=== PATIENT | male | born 1990 | race Hispanic/Latino ===

== ENCOUNTER 2024-12-30 11:05 | Outpatient (CLI) | payer BC, SELFPAY ==
--- NOTE | ~2024-12-30 | CT_ITS ---
CT Scan of the Chest without Contrast: Clinical Indication: Immunodeficiency Technique: Contiguous sections were acquired throughout the chest without intravenous contrast. Dose reduction technique was used on this scan by utilizing automated exposure control and iterative recon struction technique. The dose-length product (DLP) was 141.08 mGy-cm. Findings: There is no evidence of any significant mediastinal, hilar or axillary lymphadenopathy. The mediastin al soft tissues appear normal. There is no evidence of pleural or pericardial effusion. The lungs are clear. No pulmonary nodules or infiltrates are noted. Images through the upper abdomen reveal partially imaged splenomegaly. Impression: No significant abnormalities seen in the chest. Partially imaged splenomegaly. Reviewed, dictated and finalized at location . Impression: No significant abnormalities seen in the chest. Partially imaged splenomegaly.
--- OUTSIDE RECORDS SUMMARY | 2024-12-30 12:01 | XMS_ITS | Clinical Summary ---
Author Organization [facility] Address [address] [place] [address] Care Team Providers Care Spiral Tube Winder Helper Name Role Phone Lyubov Cuenca MD Primary Care Provider [phone] Source Comments [facility],non-owned Affiliates and Associated Physician Practices is amultiple site organization consisting of ambulatory clinics and hospital sitesin [place], [place], [place] and [place]. This disclosure is being madepursuant to the Care Everywhere program and may not contain all information available regarding this patient. Last updated 18.[facility] Allergies Active Allergy Reactions Criticality Noted Date Comments Amlodipine Besylate 11/01/2013 [place] bad when taking Amlodipine Lisinopril 11/01/2013 Elevated creatinine Penicillins Rash Low 01/16/2010 Medications * Be aware that medications may not be up to date on this document. Alwaysverify current medications with the patient. Medication Sig Dispensed Refills Start Date End Date Status Loperamide HCl (IMODIUM A-D) 2 MG TABS Take 4 mg by mouth 3 times daily. 90 Tab 3 05/21/2012 Active acetaminophen (TYLENOL) 325 MG tablet Take 2 Tabs by mouth every 6 hours as needed. Maximum allowable Acetaminophen amount = 4 Grams (4000 mg) / 24 hours. 04/23/2013 Active predniSONE (DELTASONE) 20 MG tabletIndications:G LILD, GENERAL MACHINIST sarcoidosis Take 2 Tabs by mouth once daily. Indications: GLILD, GENERAL MACHINIST sarcoidosis 60 Tab 5 06/01/2013 Active chlorthalidone (HYGROTON) 50 MG tablet Take 1 Tab by mouth once daily. 30 Tab 4 06/25/2013 Active azaTHIOprine (IMURAN) 50 MG tabletIndications:G LILD Take 2 Tabs by mouth once daily. Indications: GLILD 60 Tab 11 07/30/2013 Active sulfamethoxazole-tr imethoprim (BACTRIM DS; SEPTRA DS) 800-160 MG tabletIndications:C VID Take 1 Tab by mouth once daily. 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 He has systolic hypertension into the high 180's during IVIG and elevated on baseline. Likely steroids contributing to his hypertension. No renal artery stenosis on resent renal ultrasound. Plan: 1. Admit to Nephrology for observation 2. Low sodium diet 3. Vitals q 8 4. Isradipine 5 mg q 6 hours for systolic BP > 150 5. CBC, CMP, ESR, UA today 6. Will likely need daily blood pressure medication Assessment & Plan (05/04/2013 7:21 PM CDT): Assessment: Joao is a 22 y.o. 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 He has systolic hypertension into the high 180's during IVIG and elevated on baseline. Likely steroids contributing to his hypertension. No renal artery stenosis on resent renal ultrasound. Plan: 1. Admit to Nephrology for observation 2. Low sodium diet 3. Vitals q 8 4. Isradipine 5 mg q 6 hours for systolic BP > 150 5. 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 Plan: Multiple BAL and CSF panels and cultures pending Resp: -stable on room air -CT guided needle biopsy has been canceled for today. It is suppose to be scheduled for tomorrow. 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 Plan: Resp: -stable on room air -Bronchoscopy this afternoon with BAL -Plan for IR to perform a fine needle biopsy ID -Multiple panels, cultures ordered including --BAL: bacterial culture and gram stain, viral culture, fungal culture, mycoplasma pcr, calcoflour stain, PJP stain, AFB stain, PCR for EBV CMV HSV Adeno and HHV6 -LP this afternoon including cultures from CSF A/I -Received IVIG lastnight GI -NPO with MIVF running until after procedure Neuro -Continues to have 6th cranial nerve palsy on the right with slight improvement Assessment & Plan (04/09/2013 11:15 AM CDT): Assessment: 22 yo with right cranial nerve palsy of unknown etiology and noted elevated ESR. DDX includes viral infection (varicella, hema, cmv), malignancy (leukemia), other infectious etiology (fungal, lyme) and sarcoidosis. Lab results still in process Plan: 1. Allergy immunology following 2. Infectious disease onsult for their recommendations on starting empiric acyclovir for this questionable varicella infection 3. Await lab results. If no acyclovir patient should be able to be discharged home to await lab results 4. Vitals q 8 5. Regular diet Assessment & Plan (04/09/2013 11:11 AM CDT): Assessment: 22 yo with right cranial nerve palsy of unknown etiology and noted elevated ESR. DDX includes viral infection (varicella, hema, cmv), malignancy (leukemia), other infectious etiology (fungal, lyme) and sarcoidosis. Lab results still in process Plan: 1. Allergy immunology following 2. Infectious disease onsult for their recommendations on starting empiric acyclovir for this questionable varicella infection 3. Await lab results. If no acyclovir patient should be able to be discharged home to await lab results 4. Vitals q 8 5. Regular diet Assessment & Plan (04/08/2013 1:43 PM CDT): Assessment: 22 yo with right cranial nerve palsy of unknown etiology. With noted retinal inflammation and atypical cells noted in vitreous questionable infectious etiology (varicella) in the presence of his immunodeficiency. MRI abnormality with enhancement ddx includes leukemia/lymphorma or infection with given findings Plan: Assessment & Plan (04/08/2013 1:58 PM CDT): Assessment: 22 yo with right cranial nerve palsy of unknown etiology. With noted retinal inflammation and atypical cells noted in vitreous questionable infectious etiology (varicella) in the presence of his immunodeficiency. With given MRI findings Questionable for leukemia/lymphoma Plan: 1. Lumbar puncture today ( Culture, gram stain, Protein, glucose, lyme disease, Varicella, CMV, EBV, Cytology, HSV, Fungal culture, SAUL, AFB of the CSF) 2. Allergy/Immunology consult appreciated and will obtain blood ( RA, Varicella PCR, CRP, CMP, Immunoglobulins, CBC, Immunodef panel, Lymphocyte proliferation) 3. Vitals q 8 4. 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 CBC normal on admission. Hemolytic anemia may be the cause of this. Retic count normal. PT, INR, PTT normal CVID (common variable immunodeficiency) 04/27/20 10 Overview (04/03/2012): IgG 381, IgA 9, IgM 65 - 1664 S pneumoniae decreased Anti-T <0.01, anti-D 0.04, anti-HiB 0.18 CD27+ 0%, IgD- 0% Gamunex 10% 30 grams, 603 mg/kg/month. Changed to Gammaplex 5% 30 grams 519 mg/kg/month for insurance reasons on 04/03/12. Assessment & Plan (04/09/2013 11:15 AM CDT): Assessment: 22 yo with CVID followed by our allergy/immunology and receiving IVIG every month. Unknown if current 6th cranial nerve palsy secondary to an infectious etiology Plan: 1. Consult Allergy/Immunology Assessment & Plan (04/07/2013 3:34 PM CDT): Assessment: 22 yo with CVID followed by our allergy/immunology and receiving IVIG every month. Unknown if current 6th cranial nerve palsy secondary to an infectious etiology Plan: 1. Consult Allergy/Immunology Assessment & Plan (04/07/2013 3:22 PM CDT): Assessment: 22 yo with CVID followed by our allergy/immunology and receiving IVIG every month. Unknown if current 6th cranial nerve palsy secondary to an infectious etiology Plan: 1. Consult Allergy/Immunology Resolved Problems Problem Noted Date Diagnosed Date Resolved Date Hyperglycemia 05/09/2010 07/27/2010 Overview (06/01/2010): Likely due to deficiency of endocrine function of pancreas Diarrhea 05/05/2010 06/01/2010 Overview (05/17/2010): Continuous over hospitalization with variable frequency. Watery brown consistency. Reduced to 5/day with good PO intake before discharge. Acute pancreatitis 05/05/2010 0 Overview (06/01/2010): Lipase 05-08-2010 1600 Elevated levels of transamin ase & lactic acid dehydrogenase 05/05/2010 07/27/2010 Overview (06/01/2010): Most likely secondary to liver injury from varicella infection ALT 05-17-2010 - 217 Encounter for feeding tube placement 05/03/2010 06/01/2010 Status post PICC central line placement 05/03/2010 07/27/2010 Overview (05/17/2010): PICC line removed before discharge. Chickenpox 05/02/2010 07/27/2010 Overview (06/01/2010): resolved SIADH (syndrome of inappropr iate ADH production) 05/01/2010 07/27/2010 Overview (06/01/2010): resolved Peptic ulcer 04/30/2010 07/27/2010 Overview (05/17/2010): Assessment: Initial presentation of abdominal pain, difficult to control on multiple pain regiments early in hospitalization. Pain finally well controlled with morphine TIMBER SKIDDER. peptic ulcer disease noted on upper endoscope. 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 Abdominal pain resolved by return to floor from PICU. Plan: started nexium and carafate Continue carafate and PPI on discharge Elevated blood pressure read ing without diagnosis of hypertension 04/30/2010 05/09/2010 Overview (12/28/2016): Assessment: several systolics over 150. Likely pain related. Down to 120s/80s once pain controled. TSH, T4, normal Plan: Changed to morpine TIMBER SKIDDER Possible hydralisine over night for BP control Labetalol PRN IMO Update 12/28/2016 Abdominal pain 04/27/2010 05/09/2010 Overview (05/09/2010): Assessment: 19yo male, hx CVID, upper abd pain since Fri assoc with vomiting. Upper endoscopy showed peptic ulscer diseas which is likely cause. US showed marked sludge in gall bladder . pt has hemolytic anemia, which may cause uric acid stones but none seen on US. Abd pain may be a symptom of CVID, but infectious causes should be considered. Viral infection could be contributing. [place] (-), EBV titer not usable due to imm supression. Constipation may be contributing as well Plan: Now taking NS 70/hr for 24 hours for hyponatremia Nexium 40mg IV q12hr. Morphine TIMBER SKIDDER started in afternoon. Pain well controled over night Pt declined zofran for nausea Consider DNA amp for ebv Miralax and docusate sup for constipation Antispasmotics discontinued. Family History Medical History Relation Name Comments Anesthesia Reaction Mother PONV-dif ficulty awakening Relation Name Status Comments Mother Social History Tobacco Use Types Packs/Day Years Used Date Smoking Tobacco: Never Alcohol Use Standard Drinks/Week Comments No 0 (1 standard drink = 0.6 oz pur e alcohol) Sex and Gender Information Value Date Recorded Sex Assigned at Not on file Gender Identity Not on file Sexual Orientation Not on file Last Filed Vital Signs Vital Sign Reading Time Taken Comments Blood Pressure 128/70 10/01/2013 1:17 PM CHRONIC SPECIALIST Pulse 74 05/11/2013 3:30 PM CDT Temperature 36.6 C (97.8 F) 05/11/2013 3:30 PM CDT Respiratory Rate 1 05/11/2013 3:30 PM CDT Oxygen Saturation 98% 05/11/2013 3:30 PM CDT Inhaled Oxygen Concentration 99% 04/21/2013 3 :00 PM CDT Weight 60 kg (132 lb 3.2 oz) 10/01/2013 1:17 PM CHRONIC SPECIALIST Height 171 cm (5' 7.32 ) 10/01/2013 1:17 PM CHRONIC SPECIALIST Body Mass Index 20.51 10/01/2013 1:17 PM CHRONIC SPECIALIST Plan of Treatment Health Maintenance Due Date Last Done Comments COVID-19 VACCINE (#1) 1996 HIV SCREENING 2006 HEPATITIS C SCREENING 09/05/2009 DTAP/TDAP/TD VACCINES (1 - Tdap) 2010 HEPATITIS B VACCINE (1 of 3 - 19+ 3-dose series) 2010 PNEUMOCOCCAL VACCINE (1 of 2 - PCV) 2010 ZOSTER VACCINE (1 of 2) 2010 INFLUENZA VACCINE (#1) 2024 DEPRESSION SCREENING 09/29/2024 HIB VACCINE Aged Out No longer eligi ble based on patient's age to complete this topic HPV VACCINE Aged Out No longer eligi ble based on patient's age to complete this topic MENINGOCOCCAL (Group B) VACC INE SHARED DECISION-MAKING Aged Out No longer eligibl e based on patient's age to complete this topic MENINGOCOCCAL GROUPS A/C/Y/W VACCINE Aged Out No longer eligible b ased on patient's age to complete this topic Care Teams Spiral Tube Winder Helper Relationship Specialty Start Date End Date Lyubov Cuenca MD PCP - General Pediatrics 03/03/12
--- OUTSIDE RECORDS SUMMARY | 2024-12-30 12:01 | XMS_ITS | Referral Summary ---
Author Organization [facility] Address [address] [place] [phone] Care Team Providers Care Steam Drier Tender Name Role Phone Carlotta Ybarra DO Primary Care Provider [phone] Encounters Date Type Department Care Team Description 12/24/2024 Documentation [facility] Allergy and Immunology [address] [place] [address] [place] [phone] Britni Guillaume, LAKHWINDER 12/20/2024 Telephone [facility] Allergy and Immunology [address] [place] [address] [place] [phone] Britni Guillaume, LAKHWINDER 12/14/2024 Documentation [facility] Allergy and Immunology [address] [place] [phone] Britni Guillaume RN 12/09/2024 Telephone [facility] Allergy and Immunology [address] [place] [phone] Santino Horn 12/01/2024 9:00 AM ZOO VETERINARIAN Office Visit [facility] Allergy and Immunology [address] [facility] [address] [place] [phone] Nilda Page NP CVID (common variable immunodeficiency) (HCC) (Primary Dx); Fox syndrome (HCC) from Last 3 Months Allergies Active Allergy Reactions Criticality Noted Date Comments Penicillins Rash Medium 01/16/2010 Reaction: Rash, Medications acetaminophen (TYLENOL) 325 mg tablet Take 2 tablets (650 mg total) by mouth every 6 hours 3 Active loperamide (IMODIUM A-D) 2 mg tablet Take 2 tablets (4 mg total) by mouth 2 Active EPINEPHrine 0.3 mg/0.3 mL auto-injection syringeIndicati ons:Anaphylaxis Inject 0.3 mL (0.3 mg total) into the muscle as instructed as needed for anaphylaxis Call 911 after use. 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 Never 12/01/2024 Q2: How many drinks containi ng alcohol do you have on a typical day when you are drinking? Patient does not drink Q3: How often do you have si x or more drinks on one occasion? Never 12/01/2024 Sex and Gender Information Value Date Recorded Sex Assigned at Not on file Legal Sex Male 11:32 PM ZOO VETERINARIAN Gender Identity Male 07/29/2018 2:15 PM CDT Sexual Orientation Not on file Last Filed Vital Signs Vital Sign Reading Time Taken Comments Blood Pressure 160/105 12/01/2024 8:56 AM ZOO VETERINARIAN mannual blood pressure taken. Pulse 97 12/01/2024 8:46 AM ZOO VETERINARIAN Temperature 36.4 C (97.6 F) 12/01/2024 8:46 AM ZOO VETERINARIAN Respiratory Rate 18 12/01/2024 8:46 AM ZOO VETERINARIAN Oxygen Saturation 97% 12/01/2024 8:4 6 AM ZOO VETERINARIAN Inhaled Oxygen Concentration - - Weight 64.9 kg (143 lb) 12/01/2024 8:46 AM ZOO VETERINARIAN Height 170.2 cm (5' 7 ) 10/21/2019 10:5 1 AM ZOO VETERINARIAN Body Mass Index 22.4 10/21/2019 10:51 AM ZOO VETERINARIAN Plan of Treatment Not on file Insurance [facility] [place] Care Teams Steam Drier Tender Relationship Specialty Start Date End Date Carlotta Ybarra DO [address] [place] [address] [address] PCP - General Family Medicine 11/14/23
--- OUTSIDE RECORDS SUMMARY | 2024-12-30 12:01 | XMS_ITS | Clinical Summary ---
Author Organization [facility] Address [address] [place] [phone] Care Team Providers Care Embossing Calender Operator Name Role Phone Carlotta Ybarra DO Primary Care Provider [phone]- [phone] Allergies Active Allergy Reactions Criticality Noted Date [...] of b-cell numbers and function 08/09/2015 02/02/2020 Encounters Date Type Department Care Team Description 12/24/2024 Documentation [facility] Allergy and Immunology [address] [place] [address] [address] [place] [phone] Britni Guillaume RN 12/20/2024 Telephone [facility] Allergy and Immunology [address] [facility] [address] [place] [phone] Britni Guillaume RN 12/14/2024 Documentation [facility] Allergy and Immunology [address] [facility] [address] [place] [phone] Britni Guillaume RN 12/09/2024 Telephone [facility] Allergy and Immunology [address] [facility] [address] [place] [phone] Santino Horn 12/01/2024 9:00 AM DYNAMICIST Office Visit [facility] Allergy and Immunology [address] [facility] [address] [place] [address] Nilda Page, CHIDI CVID (common variable immunodeficiency) (HCC) (Primary Dx); Fox syndrome (HCC) from Last 3 Months Immunizations Immunization Administration Dates Next Due Influenza, Trivalent, Cell C ulture-based MDCK, Preservative Free, Antibiotic Free, Intramuscular 12/01/2024 Medical History Medical History Date Comments CKD (chronic kidney disease) 06/17/2018 Fox syndrome (HCC) 07/24/2015 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 (HCC) 08/09/2015 Family History Medical History Relation Name Comments Arthritis Maternal Grandmother Breast cancer Maternal Grandmother Diabetes Maternal Grandmother Breast cancer Mother Breast cancer Other Family history of malignant neoplasm of breast - (Added by TW Conv) Relation Name Status Comments Father Alive Maternal Grandfather Alive Maternal Grandmother Alive Mother Alive Other Social History Tobacco Use Types Packs/Day Years [...] on file Legal Sex Male 11:32 PM DYNAMICIST Gender Identity Male 07/29/2018 2:15 PM CDT Sexual Orientation Not on file Obstetrics History Last Filed Vital Signs Vital Sign Reading Time Taken Comments Blood Pressure 160/105 12/01/2024 8:56 AM DYNAMICIST mannual blood pressure taken. Pulse 97 12/01/2024 8:46 AM DYNAMICIST Temperature 36.4 C (97.6 F) 12/01/2024 8:46 AM DYNAMICIST Respiratory Rate 18 12/01/2024 8:46 AM DYNAMICIST Oxygen Saturation 97% 12/01/2024 8:4 6 AM DYNAMICIST Inhaled Oxygen Concentration - - Weight 64.9 kg (143 lb) 12/01/2024 8:46 AM DYNAMICIST Height 170.2 cm (5' 7 ) 10/21/2019 10:5 1 AM DYNAMICIST Body Mass Index 22.4 10/21/2019 10:51 AM DYNAMICIST Plan of Treatment Health Maintenance Due Date Last Done Comments Depression Screening 1991 Hepatitis C Screening 1991 DTaP/Tdap/Td Vaccine (1 - Tdap) 2002 Varicella Vaccines (1 of 2 - 13+ 2-dose series) 2004 Hepatitis B Screening 2009 Regular Well Visit/Exam 18-64 2009 Pneumococcal vaccine <65 (1 of 2 - PCV) 2010 Zoster Vaccine (1 of 2) 2010 Influenza Vaccine Completed 12/01/2024 HPV Vaccines Aged Out No longer eligi ble based on patient's age to complete this topic Insurance [facility] H[facility]PPO Address: [facility] [address] [place] [address] [employer] [place] Care Teams Embossing Calender Operator Relationship Specialty Start Date End Date Carlotta Ybarra DO [address] [place] [address] [address] PCP - General Family Medicine 11/14/23
--- OUTSIDE RECORDS SUMMARY | 2024-12-30 12:01 | XMS_ITS | Continuity of Care Document ---
Author Organization [facility], [place] Address [address] [place] [address] Phone Care Team Providers Care Senior User Experience Architect Name Role Phone Calos Alonzo MD Unavailable Unavailable Allergies, Adverse Reactions, Alerts Substance Reaction Status Criticality penicillin G Active No Information Medications Medication Instructions Dosage Effective Dates (start - stop) Status Comments LOPERAMIDE (unknown strength) take 2 capsule by oral route after 1st loose stool, followed by 1 capsule after each subsequent loose stool not to exceed 16 mg/day Not Available - Active Procedures Procedure Date OFFICE/OUTPATIENT VISIT, [facility] SENSORIMOTOR EXAM Advance Directives Directive Yes / No Effective Date File Name No Information Encounters Encounter Description Practice Location Reason(s) For Visit Diagnoses Date Provider Providers Copied on Encounter [facility], [employer] [address], [place], [facility] [place], tel:[phone] [facility] No Information [facility]. [address], [place], [facility] [place], [place]. tel:[phone] OFFICE/OUTPATI ENT VISIT, [facility], [facility] [address], [place], [facility] [place], tel:[phone] [employer] Sixth or abducens nerve palsy [facility]. [address] [address], . tel:[phone] Referring Provider: Calos Petty, [address], [place], [address]. tel:[phone] Family History Family Member Type Diagnosis Age At Onset No Information Payers Payer name Insurance type Covered democrat ID Jamey beckman(s) [facility] [id number] Social History Type Description Quantity Date Captured Comments Sex Male Smoking Status No Information Chief Complaint And Reason For Visit No Information Reason For Referral Reason For Referral No Information History Of Present Illness Encounter Date Complaint History Of Prese nt Illness No Information Functional Status Date Functional Assessmen t No Information Instructions Date Instruction Additional Infor levy Sixth or abducens ne rve palsy, OD - Catie's note: MRI brain/orbits advised with or without the presence of papilledema. Will try to schedule MRI this pm before pt leaves [facility] (per PAU). Hold on any prismatic correction. If no papilledema, I would recommend MG w/u. Patient driving to [place] tomorrow then flying back to [facility] for Friday. Will need follow up care with radio station audio engineer there. Per PAU, will schedule MRI this pm, will have pt follow up with radio station audio engineer when returns home. Suggest pt patch one eye for functioning. 04/03/13 - MRI results are normal, LM w/ pt; will mail chart notes to pts home address so he can f/u when returning. Related to Sixth or abducens nerve palsy Assessments Type Assessment Date No Information Patient Care Teams Name Effective Dates (start - stop) Status Members No Information
== END 2024-12-30 11:06 | disposition home or self-care (01) ==
DX: D83.9 Common variable immunodeficiency, unspecified (principal)
CPT/HCPCS: 71250